=== PATIENT | male | born 1975 | race Two or more races ===

== ENCOUNTER 2021-03-31 04:49 | Inpatient (IN) | payer MEDICARE, OTHER ==
[~2021-03-31] VITALS: Ht 162.6 cm; Wt 63.6 kg
[2021-03-31] MEDS ORDERED: LISI-661 PO (05:14)
[2021-03-31] MEDS ORDERED: TRACOLIMUS PO (05:14)
[2021-03-31] MEDS ORDERED: PRED1 PO (05:14)
[2021-03-31] MEDS ORDERED: PIPERACILLIN/TAZO 3.375 GM/D5W 50 ML IV ONE (06:00)
[2021-03-31] MEDS ORDERED: VANCOMYCIN HCL 1 GM/D5% WATER 200 ML IV ONE (06:00)
[2021-03-31 06:28] LABS: BASOPHILS % (AUTO) 0.6 % (0.0-2.0); EOSINOPHILS % (AUTO) 1.6 % (1.0-6.0); HEMATOCRIT 31.8 % (41-53); HEMOGLOBIN 10.6 g/dL (13.5-17.5); LYMPHOCYTES # (AUTO) 1.5 K/uL (1.0-4.8); LYMPHOCYTES % (AUTO) 19.5 % (22.0-44.0); MEAN CORPUSCULAR HEMOGLOBIN 29.6 pg (26.0-34.0); MEAN CORPUSCULAR HGB CONC 33.2 G/dL (31.0-37.0); MEAN CORPUSCULAR VOLUME 89 fL (80-100); MONOCYTES # (AUTO) 0.7 K/uL (0.1-1.0); MONOCYTES % (AUTO) 9.4 % (2.0-9.0); NEUTROPHILS # (AUTO) 5.3 K/uL (1.8-7.7); NEUTROPHILS % (AUTO) 68.9 % (40.0-70.0); PLATELET COUNT (AUTO) 428 K/uL (150-450); RED BLOOD CELL COUNT(AUTO) 3.57 MIL/uL (4.50-5.90); RED CELL DISTRIBUTION WIDTH 14.3 % (11.5-14.5)
[2021-03-31 06:37] LABS: CREATININE 1.35 mg/dL (0.60-1.30); POTASSIUM 4.6 mmol/L (3.5-5.1)
[2021-03-31 07:03] LABS: COVID AG,FIA SOURCE NASOPHARYNGEAL
[2021-03-31] MEDS ORDERED: ACETAMINOPHEN 325 MG TABLET PO PRN ×2 (07:30→10:15)
[2021-03-31] MEDS ORDERED: ONDANSETRON HCL 4 MG/2 ML VIAL IVP PRN (07:30)
[2021-03-31] MEDS ORDERED: GADOTERATE MEGLUMINE 10 MMOL/20 ML VIAL IVP ONE (08:17)
[2021-03-31] MEDS ORDERED: OxyCODONE HCL/ACETAMINOPHEN 5-325 MG TABLET PO PRN ×2 (10:15)
[2021-03-31] MEDS ORDERED: MAGNESIUM HYDROXIDE SUSPENSION 30 ML UDCUP PO PRN (10:15)
[2021-03-31] MEDS ORDERED: DEXTROSE 50%-WATER 25 GM/50 ML SYRINGE IVP PRN (10:30)
[2021-03-31] MEDS ORDERED: SODIUM CHLORIDE 0.9% 1,000 ML IV ONE (10:30)
[2021-03-31] MEDS: PIPERACILLIN/TAZO 3.375 GM/D5W 50 ML IV SCH ×3 (11:10→23:13)
[2021-03-31 13:38] LABS: C-REACTIVE PROTEIN QUANT 0.42 mg/dL (0.00-0.30)
[2021-03-31] MEDS: INSULIN LISPRO 100 UNITS/ML SQ PRN ×2 (17:41→18:50)
[2021-03-31 17:46] LABS: GLUCOMETER DEV NAME(LOC) ERT.5; GLUCOSE,POINT OF CARE 186 MG/DL (70-110)
[2021-03-31 19:01] LABS: GLUCOMETER DEV NAME(LOC) ERT.5; GLUCOSE,POINT OF CARE 197 MG/DL (70-110)
[2021-03-31] MEDS: VANCOMYCIN HCL 750 MG in DEXTROSE 5%-WATER 250 ML IV SCH (20:17)
[2021-03-31] MEDS: TACROLIMUS 1 MG CAPSULE PO SCH (21:39)
[2021-03-31] MEDS: INSULIN GLARGINE,HUM.REC.ANLOG 100 UNITS/ML SQ SCH (21:56)
[2021-03-31 22:06] LABS: GLUCOMETER DEV NAME(LOC) ERT.5; GLUCOSE,POINT OF CARE 254 MG/DL (70-110)
[2021-04-01 02:41] LABS: GLUCOMETER DEV NAME(LOC) ERT.5; GLUCOSE,POINT OF CARE 187 MG/DL (70-110)
[2021-04-01] MEDS: PIPERACILLIN/TAZO 3.375 GM/D5W 50 ML IV SCH ×3 (05:18→17:07)
[2021-04-01] MEDS: VANCOMYCIN HCL 750 MG in DEXTROSE 5%-WATER 250 ML IV SCH ×2 (08:51→20:44)
[2021-04-01] MEDS: FAMOTIDINE 20 MG TABLET PO SCH (08:56)
[2021-04-01] MEDS ORDERED: TACROLIMUS 1 MG CAPSULE PO SCH (09:00)
[2021-04-01] MEDS ORDERED: PredniSONE 5 MG TABLET PO SCH (09:00)
[2021-04-01 09:18] LABS: CALCIUM, TOTAL 8.6 mg/dL (8.8-10.5); CREATININE 1.37 mg/dL (0.60-1.30); POTASSIUM 4.7 mmol/L (3.5-5.1)
[2021-04-01] MEDS ORDERED: RINGERS SOLUTION,LACTATED 0 ML IV ONE (09:47)
[2021-04-01] MEDS ORDERED: SODIUM CHLORIDE 0.9% 1,000 ML ONE (10:04)
[2021-04-01 10:10] VITALS: BP 160/82
[2021-04-01] MEDS ORDERED: SODIUM CHLORIDE 0.9% 1,000 ML IV ONE (11:00)
[2021-04-01] MEDS ORDERED: ETHYL ALCOHOL 62% ANTISEPTIC NASAL INHALANT 0.6 ML AMPUL NASAL ONE (11:30)
[2021-04-01] MEDS ORDERED: FentaNYL CITRATE PF 100 MCG/2 ML VIAL IVP PRN (12:45)
[2021-04-01] MEDS ORDERED: HYDROmorphone 2 MG/ML VIAL IVP PRN (12:45)
[2021-04-01] MEDS ORDERED: LISINOPRIL 10 MG TABLET PO ONE (15:15)
[2021-04-01 15:49] VITALS: BP 185/72
[2021-04-01 16:11] LABS: GLUCOMETER DEV NAME(LOC) 6N.1; GLUCOSE,POINT OF CARE 140 MG/DL (70-110)
[2021-04-01] MEDS: TACROLIMUS 1 MG CAPSULE PO SCH ×2 (16:28→20:58)
[2021-04-01 17:00] VITALS: BP 149/62
[2021-04-01 18:01] LABS: GLUCOMETER DEV NAME(LOC) 6N.1; GLUCOSE,POINT OF CARE 115 MG/DL (70-110)
[2021-04-01 19:38] VITALS: BP 165/89
[2021-04-01 20:21] LABS: GLUCOMETER DEV NAME(LOC) 6N.1; GLUCOSE,POINT OF CARE 160 MG/DL (70-110)
[2021-04-01] MEDS: INSULIN GLARGINE,HUM.REC.ANLOG 100 UNITS/ML SQ SCH (20:34)
[2021-04-01] MEDS: INSULIN LISPRO 100 UNITS/ML SQ PRN (20:35)
[2021-04-01] MEDS: OXYGEN THERAPY IH SCH (20:44)
[2021-04-02] MEDS: PIPERACILLIN/TAZO 3.375 GM/D5W 50 ML IV SCH ×4 (00:04→16:57)
[2021-04-02 04:33] VITALS: BP 141/73
[2021-04-02] MEDS ORDERED: MIDAZOLAM HCL 2 MG/2 ML VIAL IVP ONE (06:24)
[2021-04-02] MEDS ORDERED: LIDOCAINE/PF 2% 5 ML VIAL IM ONE (06:24)
[2021-04-02 06:31] LABS: GLUCOMETER DEV NAME(LOC) 6S.1; GLUCOSE,POINT OF CARE 103 MG/DL (70-110)
[2021-04-02 07:27] LABS: CALCIUM, TOTAL 8.5 mg/dL (8.8-10.5); CREATININE 1.35 mg/dL (0.60-1.30); POTASSIUM 4.5 mmol/L (3.5-5.1); VANCOMYCIN,RANDOM 16.3 mcg/mL (25.0-50.0)
[2021-04-02 07:41] VITALS: BP 159/89
[2021-04-02] MEDS: OXYGEN THERAPY IH SCH ×2 (08:00→20:00)
[2021-04-02] MEDS: VANCOMYCIN HCL 750 MG in DEXTROSE 5%-WATER 250 ML IV SCH ×2 (08:20→21:13)
[2021-04-02] MEDS: TACROLIMUS 1 MG CAPSULE PO SCH ×2 (08:21→21:13)
[2021-04-02] MEDS: LISINOPRIL 10 MG TABLET PO SCH (08:21)
[2021-04-02] MEDS: FAMOTIDINE 20 MG TABLET PO SCH (08:22)
[2021-04-02] MEDS: INSULIN LISPRO 100 UNITS/ML SQ PRN ×3 (11:35→21:25)
[2021-04-02 12:32] LABS: GLUCOMETER DEV NAME(LOC) 6S.1; GLUCOSE,POINT OF CARE 183 MG/DL (70-110)
[2021-04-02 16:08] VITALS: BP 175/88
[2021-04-02] MEDS ORDERED: CloNIDine HCL 0.1 MG TABLET PO PRN (16:30)
[2021-04-02] MEDS: AmLODIPine BESYLATE 5 MG TABLET PO SCH (16:57)
[2021-04-02 17:30] VITALS: BP 115/74
[2021-04-02 20:01] LABS: GLUCOMETER DEV NAME(LOC) 6N.1; GLUCOSE,POINT OF CARE 190 MG/DL (70-110)
[2021-04-02 20:44] VITALS: BP 143/75
[2021-04-02] MEDS ORDERED: SODIUM CHLORIDE 0.9% 500 ML IV ONE (21:16)
[2021-04-02] MEDS: INSULIN GLARGINE,HUM.REC.ANLOG 100 UNITS/ML SQ SCH (21:24)
[2021-04-03] MEDS: PIPERACILLIN/TAZO 3.375 GM/D5W 50 ML IV SCH ×5 (00:01→23:07)
[2021-04-03 00:26] LABS: GLUCOMETER DEV NAME(LOC) 6N.1; GLUCOSE,POINT OF CARE 180 MG/DL (70-110)
[2021-04-03 04:41] VITALS: BP 152/79
[2021-04-03] MEDS: FAMOTIDINE 20 MG TABLET PO SCH (07:51)
[2021-04-03] MEDS: LISINOPRIL 10 MG TABLET PO SCH (07:51)
[2021-04-03] MEDS: AmLODIPine BESYLATE 5 MG TABLET PO SCH (07:51)
[2021-04-03] MEDS: TACROLIMUS 1 MG CAPSULE PO SCH ×2 (07:51→20:24)
[2021-04-03 07:54] VITALS: BP 149/78
[2021-04-03 08:02] LABS: GLUCOMETER DEV NAME(LOC) 6S.1; GLUCOSE,POINT OF CARE 111 MG/DL (70-110)
[2021-04-03] MEDS: VANCOMYCIN HCL 750 MG in DEXTROSE 5%-WATER 250 ML IV SCH ×2 (08:05→20:18)
[2021-04-03 09:46] LABS: CALCIUM, TOTAL 8.9 mg/dL (8.8-10.5); CHOL/HDL RATIO 4.7 (4.2-7.3); CREATININE 1.48 mg/dL (0.60-1.30); PHOSPHORUS 4.1 mg/dL (2.5-4.9); POTASSIUM 4.4 mmol/L (3.5-5.1)
[2021-04-03] MEDS: INSULIN LISPRO 100 UNITS/ML SQ PRN ×2 (11:10→20:23)
[2021-04-03 12:36] LABS: GLUCOMETER DEV NAME(LOC) 6N.1; GLUCOSE,POINT OF CARE 218 MG/DL (70-110)
[2021-04-03 16:05] VITALS: BP 128/71
[2021-04-03 17:36] LABS: GLUCOMETER DEV NAME(LOC) 6N.1; GLUCOSE,POINT OF CARE 133 MG/DL (70-110)
[2021-04-03 19:25] VITALS: BP 151/72
[2021-04-03] MEDS: OXYGEN THERAPY IH SCH (20:00)
[2021-04-03] MEDS: INSULIN GLARGINE,HUM.REC.ANLOG 100 UNITS/ML SQ SCH (20:22)
[2021-04-03 20:41] LABS: GLUCOMETER DEV NAME(LOC) 6S.1; GLUCOSE,POINT OF CARE 223 MG/DL (70-110)
[2021-04-04 04:57] VITALS: BP 127/62
[2021-04-04] MEDS: PIPERACILLIN/TAZO 3.375 GM/D5W 50 ML IV SCH (05:28)
[2021-04-04 07:34] LABS: CALCIUM, TOTAL 8.8 mg/dL (8.8-10.5); CREATININE 1.49 mg/dL (0.60-1.30); POTASSIUM 4.6 mmol/L (3.5-5.1)
[2021-04-04 07:46] LABS: GLUCOMETER DEV NAME(LOC) 6S.1; GLUCOSE,POINT OF CARE 115 MG/DL (70-110)
[2021-04-04 07:59] VITALS: BP 136/83
[2021-04-04] MEDS: OXYGEN THERAPY IH SCH (08:00)
[2021-04-04] MEDS: AmLODIPine BESYLATE 5 MG TABLET PO SCH (08:04)
[2021-04-04] MEDS: FAMOTIDINE 20 MG TABLET PO SCH (08:04)
[2021-04-04] MEDS: LISINOPRIL 10 MG TABLET PO SCH (08:04)
[2021-04-04] MEDS: TACROLIMUS 1 MG CAPSULE PO SCH ×2 (08:04→20:12)
[2021-04-04] MEDS ORDERED: VANCOMYCIN HCL 1 GM/D5% WATER 200 ML IV PRN (09:00)
[2021-04-04] MEDS: LEVOFLOXACIN 750 MG TABLET PO SCH (11:37)
[2021-04-04] MEDS: INSULIN LISPRO 100 UNITS/ML SQ PRN ×2 (11:38→20:21)
[2021-04-04 12:01] LABS: GLUCOMETER DEV NAME(LOC) 6S.1; GLUCOSE,POINT OF CARE 152 MG/DL (70-110)
[2021-04-04 16:08] VITALS: BP 162/88
[2021-04-04 18:47] LABS: GLUCOMETER DEV NAME(LOC) 6S.1; GLUCOSE,POINT OF CARE 126 MG/DL (70-110)
[2021-04-04] MEDS: INSULIN GLARGINE,HUM.REC.ANLOG 100 UNITS/ML SQ SCH (20:20)
[2021-04-04 20:30] VITALS: BP 158/87
[2021-04-05 02:51] LABS: GLUCOMETER DEV NAME(LOC) 6N.1; GLUCOSE,POINT OF CARE 142 MG/DL (70-110)
[2021-04-05 05:08] VITALS: BP 127/72
[2021-04-05 06:56] LABS: GLUCOMETER DEV NAME(LOC) 6N.1; GLUCOSE,POINT OF CARE 88 MG/DL (70-110)
[2021-04-05] MEDS: OXYGEN THERAPY IH SCH ×2 (08:00→20:00)
[2021-04-05 08:04] VITALS: BP 138/68
[2021-04-05 08:13] LABS: BASOPHILS % (AUTO) 0.7 % (0.0-2.0); EOSINOPHILS % (AUTO) 2.6 % (1.0-6.0); HEMATOCRIT 34.7 % (41-53); HEMOGLOBIN 11.5 g/dL (13.5-17.5); LYMPHOCYTES # (AUTO) 1.5 K/uL (1.0-4.8); LYMPHOCYTES % (AUTO) 23.2 % (22.0-44.0); MEAN CORPUSCULAR HEMOGLOBIN 29.1 pg (26.0-34.0); MEAN CORPUSCULAR HGB CONC 33.2 G/dL (31.0-37.0); MEAN CORPUSCULAR VOLUME 88 fL (80-100); MONOCYTES # (AUTO) 0.6 K/uL (0.1-1.0); NEUTROPHILS % (AUTO) 64.5 % (40.0-70.0); PLATELET COUNT (AUTO) 290 K/uL (150-450); RED BLOOD CELL COUNT(AUTO) 3.96 MIL/uL (4.50-5.90); RED CELL DISTRIBUTION WIDTH 13.7 % (11.5-14.5)
[2021-04-05] MEDS: AmLODIPine BESYLATE 5 MG TABLET PO SCH (08:34)
[2021-04-05] MEDS: FAMOTIDINE 20 MG TABLET PO SCH (08:34)
[2021-04-05] MEDS: LISINOPRIL 10 MG TABLET PO SCH (08:34)
[2021-04-05] MEDS: LEVOFLOXACIN 750 MG TABLET PO SCH (08:34)
[2021-04-05] MEDS: TACROLIMUS 1 MG CAPSULE PO SCH ×2 (08:35→20:31)
[2021-04-05 08:36] LABS: CALCIUM, TOTAL 9.2 mg/dL (8.8-10.5); CREATININE 1.72 mg/dL (0.60-1.30); POTASSIUM 5.1 mmol/L (3.5-5.1)
[2021-04-05] MEDS ORDERED: *CLINICAL-LEVOFLOXACIN ORAL DOSING CLINICAL ONE ×2 (09:30)
[2021-04-05] MEDS ORDERED: SODIUM CL IRRIG SOLN BOTTLE 250 ML IRRIG ONE (09:48)
[2021-04-05] MEDS: INSULIN LISPRO 100 UNITS/ML SQ PRN ×2 (11:40→20:52)
[2021-04-05 12:01] LABS: GLUCOMETER DEV NAME(LOC) 6N.1; GLUCOSE,POINT OF CARE 186 MG/DL (70-110)
[2021-04-05 15:48] VITALS: BP 169/86
[2021-04-05] MEDS ORDERED: TACR1CAP6 PO (17:11)
[2021-04-05] MEDS ORDERED: TACR1CAP12 PO (17:11)
[2021-04-05 18:57] VITALS: BP 155/94
[2021-04-05 19:45] LABS: GLUCOMETER DEV NAME(LOC) 6N.1; GLUCOSE,POINT OF CARE 110 MG/DL (70-110)
[2021-04-05 20:08] VITALS: BP 158/88
[2021-04-05] MEDS: MetroNIDAZOLE 500 MG TABLET PO SCH (20:30)
[2021-04-05] MEDS: INSULIN GLARGINE,HUM.REC.ANLOG 100 UNITS/ML SQ SCH (20:51)
[2021-04-05 22:26] LABS: GLUCOMETER DEV NAME(LOC) 6N.2; GLUCOSE,POINT OF CARE 203 MG/DL (70-110)
[2021-04-06 04:30] VITALS: BP 155/76
[2021-04-06 06:11] LABS: GLUCOMETER DEV NAME(LOC) 6N.1; GLUCOSE,POINT OF CARE 106 MG/DL (70-110)
[2021-04-06] MEDS: MetroNIDAZOLE 500 MG TABLET PO SCH ×3 (07:57→20:57)
[2021-04-06] MEDS: AmLODIPine BESYLATE 5 MG TABLET PO SCH (07:57)
[2021-04-06] MEDS: OXYGEN THERAPY IH SCH (07:57)
[2021-04-06] MEDS: TACROLIMUS 1 MG CAPSULE PO SCH ×2 (07:57→20:57)
[2021-04-06] MEDS: FAMOTIDINE 20 MG TABLET PO SCH (07:57)
[2021-04-06] MEDS: LISINOPRIL 10 MG TABLET PO SCH (07:57)
[2021-04-06 08:00] VITALS: BP 96/61
[2021-04-06 09:21] LABS: CALCIUM, TOTAL 9.1 mg/dL (8.8-10.5); CREATININE 1.77 mg/dL (0.60-1.30); MAGNESIUM 2.2 mg/dL (1.80-2.40); PHOSPHORUS 4.5 mg/dL (2.5-4.9)
[2021-04-06] MEDS: INSULIN LISPRO 100 UNITS/ML SQ PRN ×3 (11:19→21:06)
[2021-04-06 13:06] LABS: GLUCOMETER DEV NAME(LOC) 6N.1; GLUCOSE,POINT OF CARE 200 MG/DL (70-110)
[2021-04-06 16:31] VITALS: BP 102/66
[2021-04-06 19:45] VITALS: BP 147/73
[2021-04-06 20:16] LABS: GLUCOMETER DEV NAME(LOC) 6N.1; GLUCOSE,POINT OF CARE 264 MG/DL (70-110)
[2021-04-06] MEDS: INSULIN GLARGINE,HUM.REC.ANLOG 100 UNITS/ML SQ SCH (21:00)
[2021-04-07 01:46] LABS: GLUCOMETER DEV NAME(LOC) 6N.2; GLUCOSE,POINT OF CARE 62 MG/DL (70-110)
[2021-04-07 04:00] VITALS: BP 113/57
[2021-04-07 06:50] LABS: BASOPHILS % (AUTO) 0.8 % (0.0-2.0); HEMATOCRIT 32.4 % (41-53); LYMPHOCYTES # (AUTO) 1.7 K/uL (1.0-4.8); LYMPHOCYTES % (AUTO) 27.1 % (22.0-44.0); MEAN CORPUSCULAR HEMOGLOBIN 29.7 pg (26.0-34.0); MEAN CORPUSCULAR HGB CONC 33.8 G/dL (31.0-37.0); MEAN CORPUSCULAR VOLUME 88 fL (80-100); MONOCYTES # (AUTO) 0.6 K/uL (0.1-1.0); MONOCYTES % (AUTO) 9.9 % (2.0-9.0); NEUTROPHILS # (AUTO) 3.6 K/uL (1.8-7.7); NEUTROPHILS % (AUTO) 59.2 % (40.0-70.0); PLATELET COUNT (AUTO) 234 K/uL (150-450); RED BLOOD CELL COUNT(AUTO) 3.69 MIL/uL (4.50-5.90); RED CELL DISTRIBUTION WIDTH 13.9 % (11.5-14.5)
[2021-04-07 07:13] LABS: CALCIUM, TOTAL 9.1 mg/dL (8.8-10.5); CREATININE 1.89 mg/dL (0.60-1.30); MAGNESIUM 2.3 mg/dL (1.80-2.40); PHOSPHORUS 4.7 mg/dL (2.5-4.9); POTASSIUM 5.2 mmol/L (3.5-5.1)
[2021-04-07 07:27] VITALS: BP 118/54
[2021-04-07] MEDS: OXYGEN THERAPY IH SCH (08:00)
[2021-04-07] MEDS: MetroNIDAZOLE 500 MG TABLET PO SCH ×3 (08:50→20:02)
[2021-04-07] MEDS: LISINOPRIL 10 MG TABLET PO SCH (08:50)
[2021-04-07] MEDS: TACROLIMUS 1 MG CAPSULE PO SCH ×2 (08:50→20:02)
[2021-04-07] MEDS: AmLODIPine BESYLATE 5 MG TABLET PO SCH (08:50)
[2021-04-07] MEDS: LEVOFLOXACIN 500 MG TABLET PO SCH (08:50)
[2021-04-07] MEDS: FAMOTIDINE 20 MG TABLET PO SCH (08:50)
[2021-04-07] MEDS ORDERED: LEVOFLOXACIN 750 MG TABLET PO SCH (09:00)
[2021-04-07] MEDS: INSULIN LISPRO 100 UNITS/ML SQ PRN ×2 (12:03→17:52)
[2021-04-07 14:54] VITALS: BP 103/57
[2021-04-07 18:01] LABS: GLUCOMETER DEV NAME(LOC) 6N.1; GLUCOSE,POINT OF CARE 171 MG/DL (70-110)
[2021-04-07 18:01] LABS: GLUCOMETER DEV NAME(LOC) 6N.1; GLUCOSE,POINT OF CARE 205 MG/DL (70-110)
[2021-04-07 19:46] VITALS: BP 127/59
[2021-04-07] MEDS: INSULIN GLARGINE,HUM.REC.ANLOG 100 UNITS/ML SQ SCH (20:03)
[2021-04-07 21:26] LABS: GLUCOMETER DEV NAME(LOC) 6N.1; GLUCOSE,POINT OF CARE 139 MG/DL (70-110)
[2021-04-08 04:23] VITALS: BP 112/58
[2021-04-08 07:16] LABS: GLUCOMETER DEV NAME(LOC) 6N.2; GLUCOSE,POINT OF CARE 113 MG/DL (70-110)
[2021-04-08] MEDS: TACROLIMUS 1 MG CAPSULE PO SCH ×2 (08:04→19:56)
[2021-04-08] MEDS: AmLODIPine BESYLATE 5 MG TABLET PO SCH (08:04)
[2021-04-08] MEDS: MetroNIDAZOLE 500 MG TABLET PO SCH ×3 (08:04→19:56)
[2021-04-08] MEDS: FAMOTIDINE 20 MG TABLET PO SCH (08:04)
[2021-04-08 08:21] VITALS: BP 120/68
[2021-04-08] MEDS ORDERED: LEVO-72 PO (09:25)
[2021-04-08] MEDS ORDERED: METR500 PO (09:27)
[2021-04-08 10:57] LABS: ALBUMIN 3.8 g/dL (3.4-5.0); CREATININE 1.87 mg/dL (0.60-1.30); PHOSPHORUS 4.4 mg/dL (2.5-4.9); POTASSIUM 4.7 mmol/L (3.5-5.1)
[2021-04-08] MEDS: INSULIN LISPRO 100 UNITS/ML SQ PRN ×3 (11:47→19:57)
[2021-04-08 13:56] LABS: GLUCOMETER DEV NAME(LOC) 6N.1; GLUCOSE,POINT OF CARE 171 MG/DL (70-110)
[2021-04-08 15:52] VITALS: BP 124/80
[2021-04-08] MEDS: INSULIN GLARGINE,HUM.REC.ANLOG 100 UNITS/ML SQ SCH (19:58)
[2021-04-08 20:26] VITALS: BP 144/73
[2021-04-09 03:59] VITALS: BP 158/66
[2021-04-09 08:11] VITALS: BP 109/63
[2021-04-09 08:26] LABS: GLUCOMETER DEV NAME(LOC) 6N.2; GLUCOSE,POINT OF CARE 179 MG/DL (70-110)
[2021-04-09 08:26] LABS: GLUCOMETER DEV NAME(LOC) 6N.1; GLUCOSE,POINT OF CARE 191 MG/DL (70-110)
[2021-04-09 08:26] LABS: GLUCOMETER DEV NAME(LOC) 6N.1; GLUCOSE,POINT OF CARE 124 MG/DL (70-110)
[2021-04-09] MEDS: TACROLIMUS 1 MG CAPSULE PO SCH (09:00)
[2021-04-09] MEDS: AmLODIPine BESYLATE 5 MG TABLET PO SCH (09:01)
[2021-04-09] MEDS: MetroNIDAZOLE 500 MG TABLET PO SCH ×2 (09:01→15:14)
[2021-04-09] MEDS: FAMOTIDINE 20 MG TABLET PO SCH (09:01)
[2021-04-09] MEDS: LEVOFLOXACIN 500 MG TABLET PO SCH (09:03)
[2021-04-09] MEDS: INSULIN LISPRO 100 UNITS/ML SQ PRN ×2 (11:44→17:13)
[2021-04-09] MEDS ORDERED: MYCOPHENOLATE SODIUM 180 MG DR TABLET PO SCH (13:15)
[2021-04-09 13:41] LABS: GLUCOMETER DEV NAME(LOC) 6N.2; GLUCOSE,POINT OF CARE 161 MG/DL (70-110)
[2021-04-09 15:42] VITALS: BP 134/88
[2021-04-09 18:37] LABS: GLUCOMETER DEV NAME(LOC) 6N.2; GLUCOSE,POINT OF CARE 217 MG/DL (70-110)
== END 2021-04-09 18:29 | disposition home or self-care (01) | DRG 988 ==
LOC: EMS 04:51 → 6N 04-01 06:47
PROVIDERS: ADMIT Internal Medicine; ATTEND Internal Medicine
PROC: 0HCNXZZ Extirpation of Matter from Left Foot Skin, External Approach (ICD-10-PCS; 2021-04-01)
PROC: 0QBR0ZX Excision of Left Toe Phalanx, Open Approach, Diagnostic (ICD-10-PCS; principal; 2021-04-01 12:30)
DX: E11.69 Type 2 diabetes mellitus with other specified complication (principal); L03.116 Cellulitis of left lower limb; I12.0 Hypertensive chronic kidney disease with stage 5 chronic kidney disease or end stage renal disease; D84.9 Immunodeficiency, unspecified; M86.8X7 Other osteomyelitis, ankle and foot; Z94.0 Kidney transplant status; N18.6 End stage renal disease; N17.9 Acute kidney failure, unspecified; E11.621 Type 2 diabetes mellitus with foot ulcer; E11.22 Type 2 diabetes mellitus with diabetic chronic kidney disease; E11.42 Type 2 diabetes mellitus with diabetic polyneuropathy; D75.1 Secondary polycythemia; Z20.822 Contact with and (suspected) exposure to COVID-19; E11.51 Type 2 diabetes mellitus with diabetic peripheral angiopathy without gangrene; Z79.4 Long term (current) use of insulin; Z83.3 Family history of diabetes mellitus
CPT/HCPCS: 73723; 80048; 80061; 80069; 80197; 80202; 82962; 83036; 83735; 84100; 85025; 86140; 87040; 87070; 87081; 88300; 88307; 97162; 97166; 99285; J1815; J2250; J2543; J3370; J3490; J7030; J7040; J7060; J7120; J7507; J7518; Q9967